=== PATIENT | male | born 2000 | race Caucasian/White ===

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

== ENCOUNTER 2023-03-05 10:27 | Emergency (ER) | payer MEDICAID, SELFPAY ==
[2023-03-05 10:28] VITALS: BP 132/100; PULSE 90; RESP 14; TEMP 36.3; O2SAT 100; BMI 41.4
--- NOTE | 2023-03-05 11:10 | ED.RN ---
pt told Marilu from [facility] that they have a thing about hospitals and they are going to the [facility]. Pt has yet to decided if they want to file workers comp claim. Pt already left
== END 2023-03-05 11:15 | disposition left against medical advice (07) ==
LOC: ED 11:17
PROVIDERS: Emergency Provider Emergency Medicine; PCP Pediatrics; Visit Provider Emergency Medicine
DX: Z00.00 Encounter for general adult medical examination without abnormal findings (principal)